=== PATIENT | female | born 1965 | race Caucasian/White ===

== ENCOUNTER 2024-04-26 07:05 | Observation (INO) ==
[2024-04-26] MEDS: NOZIN NASAL SANITIZER TP ONE (07:45)
[2024-04-26] MEDS: LR 1,000 ML IV 1,000 ML IV ONE (07:50)
[2024-04-26] MEDS ORDERED: DECADRON INJ ONE (08:13)
[2024-04-26] MEDS ORDERED: DIPRIVAN VIAL 20 ML ONE (08:13)
[2024-04-26] MEDS ORDERED: PEPCID 20 MG VIAL ONE ×2 (08:13→08:34)
[2024-04-26] MEDS ORDERED: ZOFRAN INJ 4 MG VIAL ONE ×2 (08:13→08:34)
[2024-04-26] MEDS ORDERED: OFIRMEV IV 1000 MG VIAL 1,000 MG/100 ML VIAL IV ONE (08:13)
[2024-04-26] MEDS ORDERED: FENTANYL VIAL INJ 100 mcg ONE (08:13)
[2024-04-26] MEDS ORDERED: REGLAN INJ 10 MG VIAL ONE (08:13)
[2024-04-26] MEDS ORDERED: KETAMINE HCL ONE (08:22)
[2024-04-26] MEDS: LR 1,000 ML IV 1,200 ML IV PRN (08:35)
[2024-04-26 08:51] VITALS: BMI 23.9
[2024-04-26] MEDS ORDERED: NAROPIN 0.75% EPI ONE (09:41)
[2024-04-26] MEDS ORDERED: BYFAVO INJ IVP ONE (09:42)
[2024-04-26] MEDS ORDERED: BYFAVO INJ PRN (10:13)
[2024-04-26] MEDS ORDERED: PRECEDEX INJ VIAL ONE (11:28)
[2024-04-26] MEDS ORDERED: XYLOCAINE 2 % (PLAIN) ONE (11:28)
[2024-04-26] MEDS: ANCEF VIAL 1 GRAM ONE (11:28)
[2024-04-26] MEDS: VERSED IVP PRN (11:28)
[2024-04-26] MEDS: ANCEF VIAL 1 GRAM IV PRN (11:28)
[2024-04-26] MEDS ORDERED: ULTANE GAS IN ONE ×2 (11:28→13:13)
[2024-04-26] MEDS: NS 100 ML IV 100 ML ONE (11:28)
[2024-04-26] MEDS: PEPCID 20 MG VIAL IVP PRN (11:29)
[2024-04-26] MEDS: REGLAN INJ 10 MG VIAL IVP PRN (11:31)
[2024-04-26] MEDS: ZOFRAN INJ 4 MG VIAL IVP PRN ×2 (11:33→15:25)
[2024-04-26] MEDS: XYLOCAINE 2 % (PLAIN) INJ PRN (11:36)
[2024-04-26] MEDS: DECADRON INJ IVP PRN (11:40)
[2024-04-26] MEDS: MARCAINE 0.25% INJ ONE (11:45)
[2024-04-26] MEDS: OFIRMEV IV 1000 MG VIAL 1,000 MG/100 ML VIAL IV PRN (11:45)
[2024-04-26] MEDS: FENTANYL VIAL INJ 100 mcg IVP PRN (11:46)
[2024-04-26] MEDS ORDERED: DILAUDID INJ ONE (11:55)
[2024-04-26] MEDS ORDERED: ROBINUL ONE (11:56)
[2024-04-26] MEDS: ROBINUL IVP PRN (11:57)
[2024-04-26] MEDS: KETAMINE HCL IV PRN (12:48)
[2024-04-26] MEDS: DIPRIVAN VIAL 170 ML IVP PRN (13:09)
[2024-04-26] MEDS ORDERED: LR 1,000 ML IV 1,000 ML IV ONE (13:13)
[2024-04-26] MEDS ORDERED: DILAUDID INJ IVP PRN (13:21)
[2024-04-26] MEDS ORDERED: TORADOL 30 MG VIAL ONE (13:21)
[2024-04-26] MEDS ORDERED: ZOFRAN INJ 4 MG VIAL IVP PRN (13:21)
[2024-04-26] MEDS ORDERED: BARHEMSYS INJ IVP PRN (13:21)
[2024-04-26] MEDS ORDERED: BENADRYL INJ 50 MG VIAL IVP PRN (13:21)
[2024-04-26] MEDS: TORADOL 30 MG VIAL IVP PRN (13:22)
[2024-04-26] MEDS: DILAUDID INJ IVP PRN (13:54)
[2024-04-26] MEDS: PRECEDEX INJ VIAL IVP PRN (13:57)
[2024-04-26] MEDS ORDERED: TYLENOL 325 MG TAB PO PRN (14:18)
[2024-04-26] MEDS: NS 1,000 ML IV 1,000 ML IV SCH (15:31)
[2024-04-26] MEDS ORDERED: NS IRRIGATION* 500 ML IR ONE (15:33)
[2024-04-26] MEDS: VERSED ONE (16:37)
[2024-04-26] MEDS: COLACE CAP 100 MG PO SCH (21:32)
[2024-04-26] MEDS: PERCOCET TAB 5/325 MG PO PRN (21:34)
[2024-04-27 07:06] LABS: BLOOD UREA NITROGEN 13 mg/dL (7-18); CALCIUM 8.6 mg/dL (8.5-10.1); CARBON DIOXIDE 28.1 mmol/L (21-32); CHLORIDE 107 mmol/L (98-107); CREATININE 0.79 mg/dL (0.55-1.02); GLUCOSE 99 mg/dL (65-99); POTASSIUM 4.1 mmol/L (3.5-5.1); SODIUM 142 mmol/L (136-145); eGFR NON BLACK RACES > 60 (>60)
[2024-04-27] MEDS: DILAUDID INJ IVP PRN (08:26)
--- NOTE | 2024-04-27 08:57 | NOTE.SOAP ---
Soap Note Note for Day of Date of Exam: 04/27/24 Subjective Data Subjective Data: Patient is POD#1 from her TN-NC fusion with calcaneal autograft. She is having some heartburn but has not taken her omeprazole. She also has had a bowel movement but she has IBS-C and is on Linzess for this and takes it occasionally. She hasn't had that either. She denies any N/F/C/SoB/Chest Pain. Objective Data Objective Data: Left Lower Extremity Exam: Dressing taken down. No hematoma formation or gross bleeding. Dressing reapplied with 4x4s, ABD, Webroll, Splint, and VIVIANA to left lower extremity. 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 She states she is getting a knee scooter or has one at home. She does not need a Rx for crutches from me today. - Has Rx in chart for pain medication, lovenox, and Zofran. - Placed an order for one time Omeprazole and Linzess for her. - Dressing change was performed, incisions look good no hematoma. - She should start Lovenox today with one time dose here in hospital and then start her home Rx tomorrow. - I'm okay with her being discharged today once she is evaluated by Dr. Frank this am.
[2024-04-27] MEDS: PriLOSEC PO SCH (10:15)
[2024-04-27] MEDS: LOVENOX INJ 40 MG SYR SC SCH (10:15)
[2024-04-27] MEDS: LINZESS PO SCH (11:01)
[2024-04-27] MEDS: DILAUDID INJ IVP ONE (11:18)
[2024-04-27] MEDS ORDERED: MORPHINE SULFATE INJ 4 MG IVP PRN (13:33)
[2024-04-27] MEDS: VITAMIN D3 125 mcg (5,000 UNITS) PO SCH (13:38)
[2024-04-27] MEDS: PERCOCET TAB 5/325 MG PO ONE (13:39)
[2024-04-27] MEDS: OXYBUTYNIN CHLORIDE ER PO SCH (13:39)
[2024-04-27] MEDS: MORPHINE SULFATE INJ 4 MG IVP PRN (15:46)
[2024-04-27] MEDS: FLONASE NASAL SPRAY ENOSTRIL SCH (15:58)
[2024-04-27] MEDS: PERCOCET TAB 5/325 MG PO PRN (18:41)
[2024-04-27] MEDS: MAALOX or MYLANTA PO PRN (19:54)
[2024-04-27] MEDS ORDERED: TRILEPTAL PO ONE (20:49)
[2024-04-27] MEDS: TRILEPTAL PO SCH (21:25)
[2024-04-27] MEDS: SINGULAIR TAB 10 MG PO SCH (21:26)
[2024-04-27] MEDS: LIPITOR TAB 40 MG PO SCH (21:26)
[2024-04-27] MEDS: VARENICLINE TARTRATE 1 MG PO SCH (21:29)
[2024-04-27] MEDS: MORPHINE SULFATE INJ 10 MG IVP PRN (22:27)
[2024-04-28] MEDS: ZOFRAN INJ 4 MG VIAL IVP PRN (00:21)
[2024-04-28] MEDS: VISTARIL PO ONE (00:32)
[2024-04-28 06:58] LABS: BASOPHILS # (AUTO) 0.1 X10^3/uL (0.0-0.1); EOSINOPHILS % (AUTO) 0.4 % (0.9-2.9); HEMATOCRIT 34.3 % (36.0-47.0); LYMPHOCYTES # (AUTO) 1.6 X10^3/uL (1.3-2.9); LYMPHOCYTES % (AUTO) 24.5 % (21.0-51.0); MEAN CORPUSCULAR HEMOGLOBIN 33.5 pg (27.0-34.0); MEAN CORPUSCULAR HGB CONC 35.1 g/dL (33.0-35.0); MEAN CORPUSCULAR VOLUME 95.6 fL (80.0-100.0); MEAN PLATELET VOLUME 8.3 fL (7.4-11.0); MONOCYTES # (AUTO) 0.5 x10^3/uL (0.3-0.8); MONOCYTES % (AUTO) 7.3 % (0.0-13.0); NEUTROPHILS # (AUTO) 4.4 x10^3/uL (2.2-4.8); NEUTROPHILS % (AUTO) 66.8 % (42.0-75.0); PLATELET COUNT 195 X10^3/uL (150.0-450.0); RED BLOOD COUNT 3.59 X10^6/uL (3.5-5.4); RED CELL DISTRIBUTION WIDTH 12.6 % (11.6-16.5); WHITE BLOOD COUNT 6.6 X10^3/uL (3.6-10.0)
[2024-04-28] MEDS ORDERED: TRILEPTAL PO ONE ×2 (08:50→20:36)
--- NOTE | 2024-04-28 09:48 | NOTE.SOAP ---
Soap Note Note for Day of Date of Exam: 04/28/24 Subjective Data Subjective Data: Received call from nursing over night stating she was in still a ton of pain. She said the same this morning that nothing is touching her pain. The percocet helps but per patient doesn't last long and the morphine does not last long either. She feels as though she is not having good pain control. Objective Data Objective Data: Left Lower Extremity Exam: Dressing is clean, dry and intact. No changes from it. Patient states she can feel all three incisions. Dressing does not need changed this am. She does have calf pain but says its cramp pain and she also has no thigh pain. No signs or symptoms concerning for DVT or PE. 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 - We will get an xray today to make sure nothing has fractured and this is source of pain. - I switched her to morphine last night 0.6 mg. We can up that to 0.8mg. - I am adding Gabapentin 100 mg BID. - Her Percocet can stay at 10 mg. - Her pain is not controlled at this time and it is medically necessary for her to stay in hospital over night again. - I will re-examine her in the AM.
[2024-04-28] MEDS: MORPHINE SULFATE INJ 10 MG IVP PRN (12:21)
[2024-04-28] MEDS: NEURONTIN CAP 100 MG PO SCH (21:37)
[2024-04-29 04:20] VITALS: RESP 18
--- NOTE | 2024-04-29 07:47 | RAD ---
EXAM: Left foot three views HISTORY: Postop COMPARISON: MR left foot 03/22/2024 FINDINGS: Bone and joint detail is significantly limited by osteopenia and posterior splint artifact. Surgical screw-plate fixation now present at the midfoot, calcaneocuboid and talonavicular joints wit h additional surgical screw in the calcaneus. IMPRESSION: Postsurgical findings as noted. There is no evidence for hardware failure or postsurgical complicat ion. THIS IS AN ELECTRONICALLY VERIFIED FINAL REPORT 04/29/2024 7:44 AM - Electronically signed by Edgard Wilkinson MD
--- NOTE | 2024-04-29 08:56 | NOTE.SOAP ---
Soap Note Note for Day of Date of Exam: 04/29/24 Subjective Data Subjective Data: Patient is doing significantly better this morning. Says something has come over her and all the throbbing is gone. Objective Data Objective Data: Left Lower Extremity Exam: Posterior splint in place. Dressing clean, dry, and intact. No strikethrough noted. No signs or symptoms concerning for DVT or PE. 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 - Xrays showed no signs of fracture or displacement, reviewed these personally myself. - She is able to be discharged today. - She is unsure if the gabapentin helped. I instructed her if she has significant pain without it then call the office and we will send her some in. - Alsos discussed her Rx is for 5 mg Percocet and not the 10 mg she has been on in the hospital. It may be different for her but she can double up if needed. - Okay to be discharged once seen by Dr. Frank.
[2024-04-29] MEDS: TRILEPTAL PO ONE (10:01)
[2024-04-29 13:00] VITALS: BP 141/65; PULSE 55; TEMP 97.4; O2SAT 100
== END 2024-04-29 12:47 | disposition home or self-care (01) ==
LOC: MED/SURG → INTOOBSV 07:05 → OBSVTOIN 07:05 → OBS 10:43 → MED/SURG 14:59
PROVIDERS: ADMIT Obstetrics & Gynecology Obstetrics; ATTEND Obstetrics & Gynecology Obstetrics
PROC: MIDFOOT (2024-04-26 07:40)